=== PATIENT | female | born 1995 | race Two or more races ===

== ENCOUNTER 2019-07-27 02:40 | Inpatient (IN) | payer OTHER ==
[~2019-07-27] VITALS: Ht 160 cm; Wt 72.6 kg
== END 2019-07-31 14:14 | disposition home or self-care (01) | DRG 832 ==
LOC: ER 02:40 → OB/GYN 08:04
PROVIDERS: ADMIT Obstetrics & Gynecology
PROC: BY4CZZZ Ultrasonography of Second Trimester, Single Fetus (ICD-10-PCS; principal; 2019-07-27)
PROC: 4A1HXCZ Monitoring of Products of Conception, Cardiac Rate, External Approach (ICD-10-PCS; 2019-07-27)
PROC: BT43ZZZ Ultrasonography of Bilateral Kidneys (ICD-10-PCS; 2019-07-27)
PROC: BW40ZZZ Ultrasonography of Abdomen (ICD-10-PCS; 2019-07-27)
DX: O21.1 Hyperemesis gravidarum with metabolic disturbance (principal); O26.832 Pregnancy related renal disease, second trimester; N17.8 Other acute kidney failure; N13.39 Other hydronephrosis; O99.89 Other specified diseases and conditions complicating pregnancy, childbirth and the puerperium; R34 Anuria and oliguria; Z34.02 Encounter for supervision of normal first pregnancy, second trimester

== ENCOUNTER 2019-09-05 08:29 | Outpatient (CLI) | payer OTHER | END 2019-09-06 11:25 | disposition home or self-care (01) | LOC: OBS/DEL 08:29 | DX: O23.32 Infections of other parts of urinary tract in pregnancy, second trimester (principal) ==

== ENCOUNTER 2019-12-02 08:00 | Inpatient (IN) | payer OTHER ==
[~2019-12-02] VITALS: Ht 160 cm; Wt 78.0 kg
[2019-12-17] MEDS ORDERED: PRENATAL TABLE1 EAC1 PO (06:56)
== END 2019-12-23 11:25 | disposition home or self-care (01) | DRG 807 ==
LOC: OB/GYN 12-10 08:00 → LDR 12-21 18:20 → OB/GYN 12-21 19:48
PROVIDERS: ADMIT Obstetrics & Gynecology
PROC: 10E0XZZ Delivery of Products of Conception, External Approach (ICD-10-PCS; principal; 2019-12-21)
PROC: 0KQM0ZZ Repair Perineum Muscle, Open Approach (ICD-10-PCS; 2019-12-21)
PROC: 4A1HXCZ Monitoring of Products of Conception, Cardiac Rate, External Approach (ICD-10-PCS; 2019-12-21)
DX: O70.1 Second degree perineal laceration during delivery (principal); Z37.0 Single live birth; Z3A.39 39 weeks gestation of pregnancy

== ENCOUNTER 2019-12-17 06:14 | Outpatient (CLI) | payer OTHER ==
[2019-12-17] MEDS ORDERED: PRENATAL TABLE1 EAC1 PO (06:56)
== END 2019-12-17 15:28 | disposition home or self-care (01) ==
LOC: OBS/DEL 06:14
DX: O47.1 False labor at or after 37 completed weeks of gestation (principal)